=== PATIENT | male | born 1960 | race African-American/Black ===

== ENCOUNTER 2018-02-05 16:37 | Emergency (ER) | payer MEDICAID ==
[~2018-02-05] VITALS: Ht 180.3 cm; Wt 80.0 kg
[2018-02-05] MEDS ORDERED: ONDANSETRON HCL 4MG/2ML INJ IV STA (17:10)
[2018-02-05 18:20] LABS: BASOPHILS % 0.6 % (0.0-2.0); EOSINOPHILS % 0.7 % (0.0-5.0); HEMATOCRIT. 47.1 % (42.0-52.0); HEMOGLOBIN. 15.6 g/dL (14.0-18.0); LYMPHOCYTES % 19.3 % (20.0-50.0); MEAN CORPUSCULAR HEMOGLOBIN 29.5 pg (28.0-32.0); MEAN PLATELET VOLUME 7.4 fl (7.4-10.4); MONOCYTES % 6.9 % (2.0-8.0); NEUTROPHILS % 72.5 % (40.0-76.0); PLATELET 236 x1000/uL (130-400); RED BLOOD CELL COUNT 5.29 mill/uL (4.7-6.1)
[2018-02-05 18:38] LABS: CHLORIDE 99 mEq/L (98-107)
[2018-02-05 18:43] LABS: ETHANOL BLOOD < 10 mg/dL
[2018-02-05 19:40] VITALS: BP 115/69
== END 2018-02-05 19:51 | disposition home or self-care (01) ==
LOC: ER 16:37
DX: T40.7X1A Poisoning by cannabis (derivatives), accidental (unintentional), initial encounter (principal); E86.0 Dehydration; R55 Syncope and collapse; I10 Essential (primary) hypertension; F12.10 Cannabis abuse, uncomplicated; Z87.11 Personal history of peptic ulcer disease; Y92.018 Other place in single-family (private) house as the place of occurrence of the external cause
CPT/HCPCS: 36415; 70450; 71045; 80053; 83690; 83880; 84484; 85025; 96374; 99284; G0482; J2405

== ENCOUNTER 2020-12-02 19:00 | Emergency (ER) | payer MEDICAID ==
[~2020-12-02] VITALS: Ht 185.4 cm; Wt 91.0 kg
[2020-12-02 20:38] LABS: BASOPHILS % 0.2 % (0.0-2.0); EOSINOPHILS % 0.5 % (0.0-5.0); HEMATOCRIT. 42.6 % (42.0-52.0); HEMOGLOBIN. 14.1 g/dL (14.0-18.0); LYMPHOCYTES % 9.9 % (20.0-50.0); MEAN CORPUSCULAR HEMOGLOBIN 28.9 pg (28.0-32.0); MEAN CORPUSCULAR VOLUME 87.2 fL (80.0-94.0); MEAN PLATELET VOLUME 7.3 fl (7.4-10.4); NEUTROPHILS % 84.4 % (40.0-76.0); PLATELET 254 x1000/uL (130-400); RED BLOOD CELL COUNT 4.88 mill/uL (4.7-6.1); RED CELL DISTRIBUTION WIDTH 14.5 % (11.6-14.6)
[2020-12-02 20:42] LABS: CHLORIDE 105 mEq/L (98-107)
[2020-12-02 20:45] LABS: INR 0.9; PROTHROMBIN TIME 10.2 sec (9.6-11.0)
[2020-12-02 20:49] LABS: ETHANOL BLOOD < 10 mg/dL
[2020-12-02] MEDS ORDERED: LIDOCAINE HCL/EPINEPHRINE 1%-EPI 1:100,000 20 ML VIAL INFIL ONE (22:00)
[2020-12-02] MEDS ORDERED: BACITRACIN ZINC OINT UDPKT TOP ONE (22:00)
[2020-12-02 23:00] LABS: *AMPHETAMINES SCREEN URINE NEGATIVE (NEGATIVE); *BARBITURATES SCREEN URINE NEGATIVE (NEGATIVE); *BENZODIAZEPINES SCREEN URINE NEGATIVE (NEGATIVE); *COCAINE SCREEN URINE PRESUMTIVE POSITIVE (NEGATIVE); METHADONE URINE SCREEN NEGATIVE (NEGATIVE)
[2020-12-02] MEDS ORDERED: TETANUS, DIPHTHERIA, PERTUSSIS VAC/PF 0.5ML (>10YR OLD) IM ONE (23:00)
[2020-12-02 23:01] LABS: CANNABINOID URINE SCREEN PRESUMTIVE POSITIVE (NEGATIVE); OPIATES URINE SCREEN NEGATIVE (NEGATIVE); PHENCYCLIDINE URINE SCREEN NEGATIVE (NEGATIVE)
[2020-12-02] MEDS ORDERED: HYDROCODONE/ACETAMINOPHEN 5/325MG TABLET PO ONE (23:15)
[2020-12-03 00:53] VITALS: BP 149/76
[2020-12-03] MEDS ORDERED: HYDR-4001 MT (00:57)
[2020-12-03] MEDS ORDERED: IBUP-2029 MT (00:57)
[2020-12-03] MEDS ORDERED: IBUPROFEN 400MG TABLET PO NR (01:00)
[2020-12-03] MEDS ORDERED: HYDROCODONE/ACETAMINOPHEN 5/325MG TABLET PO NR (01:00)
== END 2020-12-03 01:15 | disposition home or self-care (01) ==
LOC: ER 19:00 → CANBEDREQ 12-03 01:23
DX: S09.8XXA Other specified injuries of head, initial encounter (principal); W22.8XXA Striking against or struck by other objects, initial encounter; Y93.89 Activity, other specified; Y92.89 Other specified places as the place of occurrence of the external cause; Y99.8 Other external cause status; I10 Essential (primary) hypertension; F12.10 Cannabis abuse, uncomplicated; Z79.899 Other long term (current) drug therapy
CPT/HCPCS: 12011; 36415; 70450; 70486; 72125; 80053; 80305; 80320; 85025; 85610; 90471; 90715; 99291; J3490; G0480

== ENCOUNTER 2020-12-11 10:59 | Emergency (ER) | payer MEDICAID ==
[~2020-12-11] VITALS: Ht 182.9 cm; Wt 78.0 kg
[~2020-12-11 10:59] MED LIST: HYDR-4001 MT; IBUP-2029 MT
[2020-12-11 11:04] VITALS: BP 129/77
== END 2020-12-11 15:21 | disposition home or self-care (01) ==
LOC: ER 11:08
DX: Z48.02 Encounter for removal of sutures (principal)
CPT/HCPCS: 99281

== ENCOUNTER 2023-04-09 08:25 | Emergency (ER) | payer MEDICAID, OTHER ==
[~2023-04-09] VITALS: Ht 182.9 cm; Wt 77.0 kg
[2023-04-09 08:29] VITALS: O2SAT 99
[2023-04-09 08:49] LABS: BASOPHILS % 0.4 % (0.0-2.0); EOSINOPHILS % 0.3 % (0.0-5.0); HEMATOCRIT. 48.5 % (42.0-52.0); LYMPHOCYTES % 15.3 % (20.0-50.0); MEAN CORPUSCULAR HEMOGLOBIN 28.9 pg (28.0-32.0); MEAN CORPUSCULAR VOLUME 87.5 fL (80.0-94.0); MONOCYTES % 6.9 % (2.0-8.0); NEUTROPHILS % 77.1 % (40.0-76.0); PLATELET 299 x1000/uL (130-400); RED BLOOD CELL COUNT 5.54 mill/uL (4.7-6.1); RED CELL DISTRIBUTION WIDTH 14.7 % (11.6-14.6); WHITE BLOOD COUNT 9.3 x1000/uL (4.5-11.0)
[2023-04-09 09:12] LABS: ALANINE AMINOTRANSFERASE 16 IU/L (10-49); ALBUMIN 4.4 g/dL (3.2-4.8); ASPARTATE AMINOTRANSFERASE 22 IU/L (<34); BILIRUBIN TOTAL 0.6 mg/dL (0.1-1.0); CALCIUM 9.5 mg/dL (8.7-10.4); CARBON DIOXIDE 27 mEq/L (21-32); CHLORIDE 105 mEq/L (98-107); CREATININE 1.8 mg/dL (0.6-1.3); GLUCOSE 116 mg/dL (70-105); POTASSIUM 3.4 mEq/L (3.5-5.1); PROTEIN TOTAL 7.4 g/dL (6.0-8.3); SODIUM 142 mEq/L (136-145); UREA NITROGEN BLOOD 19 mg/dL (9-23)
[2023-04-09] MEDS: MAGNESIUM/ALUMINUM HYDROXIDE/SIMETHICONE 30ML UDC PO SCH (11:20)
[2023-04-09] MEDS: FAMOTIDINE 20MG/2ML VIAL IV SCH (11:30)
[2023-04-09] MEDS: HALOPERIDOL LACTATE 5MG/ML VIAL IM SCH (11:30)
[2023-04-09] MEDS: ONDANSETRON HCL 4MG/2ML INJ IV STA (11:36)
[2023-04-09] MEDS: SODIUM CHLORIDE 0.9% 1,000 ML IV ONE (11:37)
[2023-04-09] MEDS: HALOPERIDOL LACTATE 5MG/ML VIAL IM ONE (11:37)
[2023-04-09] MEDS: FAMOTIDINE 20MG/2ML VIAL IV ONE (11:37)
[2023-04-09] MEDS: MAGNESIUM/ALUMINUM HYDROXIDE/SIMETHICONE 30ML UDC PO STA (11:37)
[2023-04-09] MEDS: KETOROLAC 30MG/ML VIAL IV ONE (15:17)
[2023-04-09] MEDS: METOCLOPRAMIDE HCL 10MG/2ML VIAL IV ONE (15:17)
[2023-04-09 15:31] LABS: CLARITY URINE CLOUDY (CLEAR); COLOR URINE DARK YELLOW (YELLOW); GLUCOSE URINE NEGATIVE (NEGATIVE); KETONES URINE TRACE (NEGATIVE); LEUKOCYTE ESTERASE URINE NEGATIVE (NEGATIVE); NITRITE URINE NEGATIVE (NEGATIVE); OCCULT BLOOD URINE NEGATIVE (NEGATIVE); PH URINE 5.5 (4.5-8.0); PROTEIN URINE 2+ (NEGATIVE); SPECIFIC GRAVITY URINE 1.027 (1.005-1.030)
[2023-04-09 15:43] LABS: BACTERIA URINE 2+; RBC URINE NONE SEEN /hpf (0-2); SQUAMOUS EPITHELIAL CELL URINE NONE SEEN /lpf (RARE/1+); YEAST URINE NONE SEEN
[2023-04-09 17:24] VITALS: BP 91/58; PULSE 87; RESP 18; TEMP 100.6
== END 2023-04-09 17:28 | disposition short-term general hospital (02) ==
LOC: ER 08:25 → CANBEDREQ 16:10 → ER 17:28
DX: R11.2 Nausea with vomiting, unspecified (principal); R10.13 Epigastric pain; F12.10 Cannabis abuse, uncomplicated; I10 Essential (primary) hypertension; E05.90 Thyrotoxicosis, unspecified without thyrotoxic crisis or storm
CPT/HCPCS: 80053; 81003; 80320; 83690; 85025; 36415; 96361; 96372; 96374; 96375; 99285; J3490; J1630; J1885; J2765; J2405; J7030; Z7610 ×3; G0480